=== PATIENT | male | born 1995 | race African-American/Black ===

== ENCOUNTER 2019-09-28 18:17 | Emergency (ER) | payer MEDICAID ==
[~2019-09-28] VITALS: Ht 175.3 cm; Wt 133.4 kg
[2019-09-28 20:56] VITALS: BP 140/103
[2019-09-28] MEDS ORDERED: DexAMETHasone SOD PHOS 10MG/1ML VIAL INJ IM ONE (22:00)
== END 2019-09-28 22:25 | disposition home or self-care (01) ==
LOC: ER 18:17
DX: D35.00 Benign neoplasm of unspecified adrenal gland (principal); J06.9 Acute upper respiratory infection, unspecified; R51 Headache
CPT/HCPCS: 70450; 96372; 99284; J1100

== ENCOUNTER → 2020-12-04 | Day surgery (SDC) | payer MEDICAID ==
[2020-12-01 11:04] LABS: Basophils # (auto) 0.1 10 ^3/uL (0-0.2); Basophils % (auto) 1.2 % (0.0-2.0); Eosinophils # (auto) 0.2 10 ^3/uL (0-0.8); Eosinophils % (auto) 3.2 % (0.0-7.0); Hematocrit 37.8 % (41.0-53.0); Hemoglobin 12.7 g/dL (13.5-17.5); Lymphocytes # (auto) 2.7 10 ^3/uL (0.4-5.4); Lymphocytes % (auto) 47.4 % (10.0-50.0); Mean Corpuscular Hemoglobin 28.4 pg (28.0-32.0); Mean Corpuscular Hgb Conc. 33.6 g/dL (32.0-36.0); Mean Corpuscular Volume 84.4 fL (80.0-100.0); Monocytes # (auto) 0.4 10 ^3/uL (0-1.3); Neutrophils # (auto) 2.4 10 ^3/uL (1.6-8.6); Neutrophils % (auto) 41.2 % (37.0-80.0); Nucleated Red Blood Cells % 0.3 %; Platelet Count (auto) 255 10^3/uL (140-450); Red Blood Cells 4.47 10^6/uL (4.5-5.90); Red Cell Distribution Width 13.7 % (11.8-14.3); White Blood Cell 5.8 10^3/uL (4.4-10.8)
[2020-12-01 11:11] LABS: Urine Bacteria NONE SEEN /hpf (None Seen); Urine Blood Negative /uL (Negative); Urine Specific Gravity 1.022 (1.001-1.035); Urine WBC 3 /hpf (0 - 3)
[2020-12-01 11:31] LABS: INR 0.97 (0.9-1.15); Partial Thromboplastin Time 28.2 sec (23.0-31.2)
[2020-12-01 11:50] LABS: Potassium 3.7 mmol/L (3.5-5.1)
[2020-12-01 11:59] LABS: Albumin 3.9 g/dL (3.4-5.0); Bilirubin, Total 0.2 mg/dL (0.2-1.0); Calcium 9.3 mg/dL (8.5-10.1); Total Protein 8.3 g/dL (6.4-8.2)
[~2020-12-04] VITALS: Ht 175.3 cm; Wt 134.7 kg
[~2020-12-04] MED LIST: GLYCOPYRROLATE 0.2 MG/ML 1ML VIAL ONE; HYDROCORTISONE SOD SUCC 100 MG/2ML INJ VIAL ONE; HYDROmorphone HCL 2 MG/ML VL IV PRN; KETAMINE HCL 10 ML ONE; KETOROLAC TROMETH 30 MG/ML 1ML VIAL IV ONE; LIDOCAINE 2% (LOCAL ANESTH.) PF 5ml SDV ONE; LIDOCAINE W/ EPINEPHRINE 1% 20ML VIAL ONE; MEPERIDINE HCL (25 MG/ML) 1ML VIAL ONE; MIDAZOLAM HCL 1MG/1ML-2 ML VIAL ONE; NEOMYCIN-BACITRACIN-POLYM 15GM TOP OINT TOP ONE; ONDANSETRON HCL 4 MG/2 ML VIAL IV PRN; ONDANSETRON HCL 4 MG/2 ML VIAL ONE; PROPOFOL 10 MG/ML 20 ML IV ONE; ceFAZolin 1GM/50ML 50 ML IV ONE; fentaNYL CITRATE 100 MCG/2 ML VL ONE
[2020-12-04 11:42] VITALS: BP 106/60
== END | disposition home or self-care (01) ==
LOC: SUR 08:24
PROVIDERS: ATTEND Urology
DX: N47.1 Phimosis (principal); E66.01 Morbid (severe) obesity due to excess calories; Z68.41 Body mass index [BMI] 40.0-44.9, adult; Z87.891 Personal history of nicotine dependence; Z20.822 Contact with and (suspected) exposure to COVID-19; Z98.890 Other specified postprocedural states; Z79.899 Other long term (current) drug therapy
CPT/HCPCS: 36415; 54161; 80053; 81001; 85025; 85610; 85730; J0690; J1720; J1885; J2001; J2175; J2250; J2405; J2704; J3010; U0003

== ENCOUNTER 2021-04-28 14:10 | Emergency (ER) | payer MEDICAID ==
[~2021-04-28] VITALS: Ht 182.9 cm; Wt 130.2 kg
[2021-04-28 15:55] VITALS: BP 138/80
== END 2021-04-28 16:27 | disposition home or self-care (01) ==
LOC: ER 14:10
DX: S62.521A Displaced fracture of distal phalanx of right thumb, initial encounter for closed fracture (principal); W22.8XXA Striking against or struck by other objects, initial encounter; Y93.89 Activity, other specified; Y92.39 Other specified sports and athletic area as the place of occurrence of the external cause; Y99.8 Other external cause status
CPT/HCPCS: 29125; 73130

== ENCOUNTER 2021-09-19 10:10 | Emergency (ER) | payer MEDICAID ==
[~2021-09-19] VITALS: Ht 185.4 cm; Wt 123.8 kg
[2021-09-19] MEDS ORDERED: AZIT250T8 PO (12:49)
[2021-09-19] MEDS ORDERED: PROM1SOL4 PO (12:49)
[2021-09-19 12:55] VITALS: BP 135/90
== END 2021-09-19 13:10 | disposition home or self-care (01) ==
LOC: ER 10:10
DX: U07.1 COVID-19 (principal); R51.9 Headache, unspecified
CPT/HCPCS: 36415; 71045; 87426